=== PATIENT | male | born 1955 | race Caucasian/White ===

== ENCOUNTER 2017-01-28 20:30 | Emergency (ER) | payer OTHER ==
[~2017-01-28] VITALS: Ht 170.2 cm; Wt 77.1 kg
[2017-01-28 20:42] VITALS: BP_SYST 165
[2017-01-28] MEDS ORDERED: LORazepam 1 MG TABLET PO ONE (21:15)
[2017-01-28 21:37] LABS: BASOPHILS % (AUTO) 0.5 % (0.0-2.0); EOSINOPHILS # (AUTO) 0.1 K/uL (0.0-0.4); EOSINOPHILS % (AUTO) 1.9 % (0.0-4.0); HEMATOCRIT 40.9 % (36-54); HEMOGLOBIN 13.7 g/dL (14.0-18.0); LYMPHOCYTES # (AUTO) 1.9 K/uL (1.0-5.5); MEAN CORPUSCULAR HEMOGLOBIN 29 pg (27-31); MEAN CORPUSCULAR HGB CONC 34 % (32-36); MEAN CORPUSCULAR VOLUME 86 fL (79.0-98.0); MONOCYTES # (AUTO) 0.6 K/uL (0.0-1.0); MONOCYTES % (AUTO) 7.4 % (1.7-9.3); NEUTROPHILS # (AUTO) 5.1 K/uL (1.8-7.7); NEUTROPHILS % (AUTO) 66.2 % (40.0-70.0); PLATELET COUNT (AUTO) 191 K/uL (130-430); RED BLOOD CELL COUNT(AUTO) 4.78 MIL/uL (4.2-6.2); RED CELL DISTRIBUTION WIDTH 12.7 % (9.0-15.0); WHITE BLOOD COUNT (AUTO) 7.7 K/uL (4.8-10.8)
[2017-01-28 21:47] LABS: BILIRUBIN,URINE NEGATIVE (NEGATIVE); BLOOD, URINE 3+ (NEGATIVE); COLOR,URINE RED (YELLOW); GLUCOSE,URINE NEGATIVE (NEGATIVE); KETONES,URINE NEGATIVE (NEGATIVE); LEUKOCYTE ESTERASE ,URINE NEGATIVE (NEGATIVE); NITRITE, URINE NEGATIVE (NEGATIVE); PROTEIN URINE 3+ (NEGATIVE); UROBILINOGEN,URINE 0.2 (0.2-1.0)
[2017-01-28 22:04] LABS: CLARITY/URINE TURBID (CLEAR)
[2017-01-28 22:08] LABS: RBC,URINE >100 /HPF (0-3)
[2017-01-28 22:09] LABS: BACTERIA,URINE MODERATE /HPF (None Seen)
[2017-01-28 22:10] LABS: MUCUS,URINE None Seen /LPF (None Seen)
[2017-01-28] MEDS ORDERED: HYDROcodone/ACETAMIN 5-325 MG TAB (NORCO/ VICODIN) PO ONE (22:15)
[2017-01-28] MEDS ORDERED: CEPHALEXIN 500 MG CAPSULE PO ONE (22:15)
[2017-01-28 22:30] VITALS: BP_SYST 144
== END 2017-01-28 22:30 | disposition home or self-care (01) ==
LOC: SED 20:30
DX: R31.9 Hematuria, unspecified (principal); N48.89 Other specified disorders of penis; M25.551 Pain in right hip; R07.81 Pleurodynia; I10 Essential (primary) hypertension
CPT/HCPCS: 36415; 81000-TC; 85025; 87086; 99284